=== PATIENT | female | born 1945 | race Caucasian/White ===

== ENCOUNTER 2016-12-24 15:12 | Emergency (ER) | payer MEDICARE, OTHER ==
[~2016-12-24 15:12] MED LIST: ALDACTONE25 M1 PO; ASPIR 8181 MG; AVANDAMET 4 MG/1 TAB; BYSTOLIC5 MG PO; CALCIUM CARBON500 M2 PO; CALTRATE-600/VI1 TA1; CENTRUM SILVER1 TA; CHOLEST OFF; CHOLEST OFF450 M1 PO; COREG3.125 M1 PO; DIOVAN HCT 320/1 TAB; DITROPAN PO; ECOTRIN325 M1 PO; GLUCOPHAGE500 M3 PO; GLUCOTROL10 M1 PO; LIPITOR40 M1 PO; LOSARTAN-HCTZ1 EAC5 PO; LOW DOSE ASPIRI81 M3 PO; METFORMIN HCL1000 MG PO; METFORMIN HCL500 M2 PO; MULTIVITAMIN1 TAB PO; MULTIVITAMINS1 EAC7 PO; MYRBETRIQ50 M1 PO; NORCO 5/3251 TA2 PO; NORVASC10 M2 PO; VERAPAMIL HCL240 M; VITAMIN B; VITAMIN D31000 UNI3 PO; VITAMIN E400 UNI4 PO; VYTORIN 10/20 T1 TAB; WELCHOL625 MG
[2016-12-24 15:38] LABS: BASO % 0.3 % (0-2); EOSINOPHIL ABSOLUTE COUNT 0.1 tho/cmm (0.0-0.7); HCT-HEMATOCRIT 40.4 % (34.0-49.0); IMMATURE GRANULOCYTES ABSOLUTE 0.01 tho/cmm (0-0.03); IMMATURE GRANULOCYTES PERCENT 0.1 % (0-0.3); LYMPH % 27.6 % (20-45); LYMPH ABSOLUTE COUNT 1.8 tho/cmm (0.8-4.5); MCH (MEAN CORPUSCULAR HGB) 28.6 pg (28.0-32.0); MCHC MEAN CORPUSCULAR HGB CONC 32.2 % (32.0-36.0); MCV (MEAN CELL VOLUME) 88.8 fl (82.0-96.0); MEAN PLATELET VOLUME 9.9 cmc (9.4-12.4); MONOCYTE ABSOLUTE COUNT 0.7 tho/cmm (0.0-1.2); NEUTROPHIL ABSOLUTE COUNT 4.1 tho/cmm (1.6-8.0); NEUTROPHIL-AUTOMATED 4.1 tho/cmm (1.6-8.0); PLATELET COUNT 230 tho/cmm (150-450); RED BLOOD COUNT 4.55 mil/cmm (4.00-5.20); RED CELL DISTRIBUTION WIDTH 14.9 % (12.4-16.4); WHITE BLOOD COUNT 6.7 tho/cmm (4.0-10.0)
[2016-12-24 15:53] LABS: ALB/GLOB RATIO 0.8 (0.8-2.0); ALBUMIN 3.7 g/dl (3.5-5.0); ALKALINE PHOSPHATASE 104 U/L (33-138); ALT/SGPT 32 U/L (12-78); ANION GAP 15 mmol/L (0-20); AST/SGOT 31 U/L (10-40); BILIRUBIN,TOTAL 0.6 mg/dl (0-1.5); BLOOD UREA NITROGEN 23 mg/dl (6-24); CALCIUM 9.5 mg/dl (8.5-10.5); CARBON DIOXIDE-VENOUS 29 mmol/L (22-32); CHLORIDE 105 mmol/l (96-110); CREATININE 0.94 mg/dl (0.50-1.10); GLUCOSE 131 mg/dL (70-110); LIPASE 364 U/L (73-393); POTASSIUM 4.5 mmol/L (3.7-5.1); SODIUM 144 mmol/L (135-145); eGFR VALUE FOR BLACK 71 mL/Min
[2016-12-24] MEDS ORDERED: CYANOCOBAL1000 MCG/3 SC (16:04)
[2016-12-24 16:40] LABS: URINE BILIRUBIN NEGATIVE (NEG); URINE BLOOD SMALL (NEG); URINE GLUCOSE (UA) NEGATIVE (NEG); URINE KETONE NEGATIVE (NEG); URINE LEUKOCYTE ESTERASE POSITIVE (NEG); URINE NITRITE POSITIVE (NEG); URINE PROTEIN MODERATE (NEG); URINE SPECIFIC GRAVITY 1.015 (1.003-1.030)
[2016-12-24 16:43] LABS: URINE APPEARANCE CLOUDY; URINE COLOR YELLOW
[2016-12-24 16:47] LABS: URINE BACTERIA 4+; URINE RBC 0-1 /[HPF] (0-5); URINE WBC 30-40 /[HPF] (0-5)
[2016-12-24] MEDS ORDERED: MACROBID 100 M100 M1 PO (17:30)
[2016-12-24] MEDS ORDERED: ZOFRAN4 M2 PO (17:30)
== END 2016-12-24 17:50 ==
LOC: EDMED 15:12
PROVIDERS: Emergency Medicine
DX: N39.0 Urinary tract infection, site not specified (principal); R11.10 Vomiting, unspecified; Z98.890 Other specified postprocedural states
CPT/HCPCS: J7030; P9612